=== PATIENT | female | born 1965 | race Caucasian/White ===

== ENCOUNTER → 2017-02-14 | Outpatient (CLI) | payer OTHER ==
[~2017-02-14] MED LIST: CEPH-368 PO; CHOL10003 PO; IBUP-1222 PO; LACT1CAP40 PO; LEVO25TA2 PO; LISI-167 PO; NAPR220C2 PO; OXYC-302 PO; THYR60TA PO; antibiotic PO
== END | disposition home or self-care (01) ==
LOC: CFH 08:18
PROVIDERS: ATTEND Internal Medicine Cardiovascular Disease
DX: I08.3 Combined rheumatic disorders of mitral, aortic and tricuspid valves (principal)
CPT/HCPCS: 78452; 93017; 93306; A9502; J2785